=== PATIENT | male | born 1960 | race Caucasian/White ===

== ENCOUNTER 2023-11-09 23:59 | Inpatient (IN) | payer OTHER, MEDICARE ==
[~2023-11-09] VITALS: Ht 177.8 cm; Wt 123.0 kg
[2023-11-10] VITALS (9 sets, daily range): BP systolic 102–143; BP diastolic 71–119; PULSE 60–86; RESP 14–24; TEMP 96.8–98.3
[2023-11-10] MEDS ORDERED: IPRATROPIUM BROMIDE (0.02%) 0.5MG/2.5ML NEB HHN STA (00:22)
[2023-11-10] MEDS ORDERED: ALBUTEROL (0.083%) 2.5MG/3ML NEB HHN STA (00:22)
[2023-11-10 00:45] LABS: BASOPHILS % 0.5 % (0.0-2.0); EOSINOPHILS % 1.2 % (0.0-5.0); HEMATOCRIT. 32.4 % (42.0-52.0); HEMOGLOBIN. 10.5 g/dL (14.0-18.0); LYMPHOCYTES % 10.6 % (20.0-50.0); MEAN CORPUSCULAR HEMOGLOBIN 26.6 pg (28.0-32.0); MEAN CORPUSCULAR HGB CONC 32.5 g/dL (31.0-37.0); MEAN CORPUSCULAR VOLUME 81.8 fL (80.0-94.0); MEAN PLATELET VOLUME 8.4 fl (7.4-10.4); MONOCYTES % 6.5 % (2.0-8.0); NEUTROPHILS % 81.2 % (40.0-76.0); PLATELET 249 x1000/uL (130-400); RED BLOOD CELL COUNT 3.96 mill/uL (4.7-6.1); RED CELL DISTRIBUTION WIDTH 19.7 % (11.6-14.6); WHITE BLOOD COUNT 8.4 x1000/uL (4.5-11.0)
[2023-11-10 01:11] LABS: ALANINE AMINOTRANSFERASE 9 IU/L (10-49); ALBUMIN 4.2 g/dL (3.2-4.8); ASPARTATE AMINOTRANSFERASE 16 IU/L (<34); BILIRUBIN TOTAL 0.9 mg/dL (0.1-1.0); CALCIUM 8.4 mg/dL (8.7-10.4); CARBON DIOXIDE 23 mEq/L (21-32); CHLORIDE 108 mEq/L (98-107); CREATININE 1.9 mg/dL (0.6-1.3); POTASSIUM 3.9 mEq/L (3.5-5.1); PROTEIN TOTAL 6.4 g/dL (6.0-8.3); SODIUM 140 mEq/L (136-145); TROPONIN I HIGH SENSITIVITY 9 ng/L (3.0-53); UREA NITROGEN BLOOD 26 mg/dL (9-23)
[2023-11-10 01:17] LABS: BG BASE EXCESS -3.5 mmol/L (-2.0-2.0); BG CARBOXYHEMOGLOBIN 0.4 % (0.5-1.5); BG DEOXYHEMOGLOBIN 9.1 % (0.0-5.0); BG HCO3 ACT 21.5 mmol/L (22.0-26.0); BG METHEMOGLOBIN 0.4 % (0.0-1.5); BG OXYGEN SATURATION 90.8 % (92.0-98.5); BG OXYHEMOGLOBIN 90.1 % (94.0-97.0); BG PCO2 38.7 mmHg (35.0-45.0); BG PH 7.363 (7.350-7.450); BG PO2 59.4 mmHg (75.0-100.0); BG SAMPLE SITE RIGHT BRACHIAL; BG TOTAL HEMOGLOBIN 11.6 g/dL (12.0-18.0); BG VENT MODE ROOM AIR
[2023-11-10] MEDS: GUAIFENESIN 600MG ER TABLET PO ONE (01:19)
[2023-11-10 01:24] LABS: INR 1.1; PARTIAL THROMBOPLASTIN TIME 29.6 sec (23.4-31.0); PROTHROMBIN TIME 11.9 sec (9.6-11.0)
[2023-11-10 02:00] LABS: ETHANOL BLOOD < 10 mg/dL (<10); GLUCOSE 34 mg/dL (70-105)
[2023-11-10] MEDS: DEXTROSE 50% WATER 50ML SYRINGE IV ONE (02:17)
[2023-11-10] MEDS ORDERED: PIPERACILLIN/TAZO 3.375G/50ML 50 ML IV SCH (07:00)
[2023-11-10] MEDS ORDERED: DEXTROSE 50% WATER 50ML SYRINGE IV PRN (07:00)
[2023-11-10] MEDS: DEXTROSE 50% WATER 50ML SYRINGE IV PRN (07:06)
[2023-11-10] MEDS: FUROSEMIDE 40MG/4ML VIAL IVP NR (07:12)
[2023-11-10] MEDS ORDERED: AMLO5TAB4 MT (07:47)
[2023-11-10] MEDS ORDERED: ATOR40TA70 MT (07:54)
[2023-11-10] MEDS ORDERED: ASPI-1497 PO (07:54)
[2023-11-10] MEDS ORDERED: METF-414 PO (07:54)
[2023-11-10] MEDS ORDERED: METO25TA6 MT (07:54)
[2023-11-10] MEDS ORDERED: LOSA-412 MT (07:54)
[2023-11-10] MEDS ORDERED: GLIP5TAB22 PO (07:54)
[2023-11-10] MEDS: BLOOD SUGAR DIAGNOSTIC STRIP TEST SCH (07:55)
[2023-11-10 08:57] LABS: BASOPHILS % 0.6 % (0.0-2.0); EOSINOPHILS % 0.6 % (0.0-5.0); HEMATOCRIT. 32.2 % (42.0-52.0); HEMOGLOBIN. 10.2 g/dL (14.0-18.0); LYMPHOCYTES % 9.9 % (20.0-50.0); MEAN CORPUSCULAR HEMOGLOBIN 25.9 pg (28.0-32.0); MEAN CORPUSCULAR HGB CONC 31.8 g/dL (31.0-37.0); MEAN CORPUSCULAR VOLUME 81.3 fL (80.0-94.0); MEAN PLATELET VOLUME 8.7 fl (7.4-10.4); MONOCYTES % 7.4 % (2.0-8.0); NEUTROPHILS % 81.5 % (40.0-76.0); PLATELET 222 x1000/uL (130-400); RED BLOOD CELL COUNT 3.96 mill/uL (4.7-6.1); WHITE BLOOD COUNT 7.2 x1000/uL (4.5-11.0)
[2023-11-10 09:13] LABS: CALCIUM 8.5 mg/dL (8.7-10.4); POTASSIUM 4.2 mEq/L (3.5-5.1)
[2023-11-10 09:16] LABS: TROPONIN I HIGH SENSITIVITY 9 ng/L (3.0-53)
[2023-11-10] MEDS: PIPERACILLIN/TAZO 3.375G/50ML IV SCH (09:21)
[2023-11-10] MEDS: PANTOPRAZOLE SODIUM 40 MG/VIAL IV SCH (09:21)
[2023-11-10] MEDS: HEPARIN 5000 UNITS/ML VIAL SUBCUT SCH (09:21)
[2023-11-10] MEDS: ASPIRIN 81MG TABLET PO SCH (09:22)
[2023-11-10] MEDS: METOPROLOL TARTRATE 25MG TABLET PO SCH (09:22)
[2023-11-10] MEDS: ATORVASTATIN CALCIUM 40MG TABLET PO SCH (20:42)
[2023-11-10 22:13] LABS: TROPONIN I HIGH SENSITIVITY 10 ng/L (3.0-53)
[2023-11-11] VITALS (12 sets, daily range): BP systolic 102–130; BP diastolic 65–108; PULSE 63–76; RESP 12–28; TEMP 96.7–98.7
[2023-11-11 06:39] LABS: BASOPHILS % 0.7 % (0.0-2.0); EOSINOPHILS % 1.6 % (0.0-5.0); HEMATOCRIT. 29.6 % (42.0-52.0); HEMOGLOBIN. 9.7 g/dL (14.0-18.0); LYMPHOCYTES % 12.6 % (20.0-50.0); MEAN CORPUSCULAR HEMOGLOBIN 26.2 pg (28.0-32.0); MEAN CORPUSCULAR HGB CONC 32.6 g/dL (31.0-37.0); MEAN CORPUSCULAR VOLUME 80.4 fL (80.0-94.0); MEAN PLATELET VOLUME 8.9 fl (7.4-10.4); MONOCYTES % 7.9 % (2.0-8.0); NEUTROPHILS % 77.2 % (40.0-76.0); PLATELET 192 x1000/uL (130-400); RED BLOOD CELL COUNT 3.68 mill/uL (4.7-6.1); RED CELL DISTRIBUTION WIDTH 18.9 % (11.6-14.6); WHITE BLOOD COUNT 6.8 x1000/uL (4.5-11.0)
[2023-11-11 06:59] LABS: CALCIUM 8.7 mg/dL (8.7-10.4); CREATININE 2.1 mg/dL (0.6-1.3); POTASSIUM 4.6 mEq/L (3.5-5.1)
[2023-11-12] VITALS (12 sets, daily range): BP systolic 116–143; BP diastolic 59–117; PULSE 53–79; RESP 12–29; TEMP 97.1–98.1
[2023-11-12 11:44] LABS: BASOPHILS % 0.9 % (0.0-2.0); EOSINOPHILS % 1.8 % (0.0-5.0); HEMATOCRIT. 30.3 % (42.0-52.0); HEMOGLOBIN. 9.7 g/dL (14.0-18.0); LYMPHOCYTES % 11.3 % (20.0-50.0); MEAN CORPUSCULAR HEMOGLOBIN 25.7 pg (28.0-32.0); MEAN CORPUSCULAR VOLUME 80.2 fL (80.0-94.0); MEAN PLATELET VOLUME 8.8 fl (7.4-10.4); MONOCYTES % 7.8 % (2.0-8.0); NEUTROPHILS % 78.2 % (40.0-76.0); PLATELET 193 x1000/uL (130-400); RED BLOOD CELL COUNT 3.78 mill/uL (4.7-6.1); RED CELL DISTRIBUTION WIDTH 19.8 % (11.6-14.6); WHITE BLOOD COUNT 5.8 x1000/uL (4.5-11.0)
[2023-11-12 12:08] LABS: CALCIUM 8.5 mg/dL (8.7-10.4); CREATININE 1.9 mg/dL (0.6-1.3); POTASSIUM 4.3 mEq/L (3.5-5.1)
[2023-11-12 12:10] LABS: BODY FLUID MONOCYTES 7 %
[2023-11-12 12:20] LABS: BODY FLUID RBC 1918 /cu mm (0-2000); BODY FLUID WBC 270 /cu mm (0-200)
[2023-11-13] VITALS (12 sets, daily range): BP systolic 123–148; BP diastolic 68–108; PULSE 61–80; RESP 17–26; TEMP 97.9–98.6
[2023-11-13 05:45] LABS: CALCIUM 8.8 mg/dL (8.7-10.4); CREATININE 1.7 mg/dL (0.6-1.3); POTASSIUM 4.2 mEq/L (3.5-5.1)
[2023-11-13 05:46] LABS: BASOPHILS % 0.4 % (0.0-2.0); EOSINOPHILS % 2.9 % (0.0-5.0); HEMATOCRIT. 30.1 % (42.0-52.0); HEMOGLOBIN. 9.8 g/dL (14.0-18.0); LYMPHOCYTES % 15.3 % (20.0-50.0); MEAN CORPUSCULAR HEMOGLOBIN 26.6 pg (28.0-32.0); MEAN CORPUSCULAR HGB CONC 32.5 g/dL (31.0-37.0); MEAN PLATELET VOLUME 8.9 fl (7.4-10.4); MONOCYTES % 7.6 % (2.0-8.0); NEUTROPHILS % 73.8 % (40.0-76.0); PLATELET 195 x1000/uL (130-400); RED BLOOD CELL COUNT 3.67 mill/uL (4.7-6.1); RED CELL DISTRIBUTION WIDTH 19.9 % (11.6-14.6); WHITE BLOOD COUNT 6.4 x1000/uL (4.5-11.0)
[2023-11-14] VITALS (13 sets, daily range): BP systolic 109–183; BP diastolic 55–122; PULSE 61–102; RESP 12–26; TEMP 97.3–98.5
[2023-11-14 09:13] LABS: EOSINOPHILS % 2.5 % (0.0-5.0); HEMATOCRIT. 30.7 % (42.0-52.0); HEMOGLOBIN. 9.9 g/dL (14.0-18.0); LYMPHOCYTES % 11.7 % (20.0-50.0); MEAN CORPUSCULAR HEMOGLOBIN 25.8 pg (28.0-32.0); MEAN CORPUSCULAR HGB CONC 32.3 g/dL (31.0-37.0); MEAN CORPUSCULAR VOLUME 80.1 fL (80.0-94.0); MEAN PLATELET VOLUME 8.6 fl (7.4-10.4); MONOCYTES % 7.1 % (2.0-8.0); NEUTROPHILS % 77.7 % (40.0-76.0); PLATELET 200 x1000/uL (130-400); RED BLOOD CELL COUNT 3.84 mill/uL (4.7-6.1); RED CELL DISTRIBUTION WIDTH 19.3 % (11.6-14.6); WHITE BLOOD COUNT 5.9 x1000/uL (4.5-11.0)
[2023-11-14 09:55] LABS: CALCIUM 8.7 mg/dL (8.7-10.4); CREATININE 1.5 mg/dL (0.6-1.3)
[2023-11-15] VITALS (11 sets, daily range): BP systolic 117–161; BP diastolic 55–94; PULSE 65–84; RESP 13–22; TEMP 97–98.4
[2023-11-15] MEDS: FUROSEMIDE 20MG/2ML VIAL IVP SCH (10:02)
[2023-11-16] VITALS (14 sets, daily range): BP systolic 121–162; BP diastolic 52–92; PULSE 0–77; RESP 13–32; TEMP 96.8–97.7
[2023-11-16] MEDS ORDERED: FUROSEMIDE 40MG/4ML VIAL IVP ONE (13:00)
[2023-11-16] MEDS: FUROSEMIDE 20MG/2ML VIAL IVP NR (13:08)
[2023-11-16 14:13] LABS: BG BASE EXCESS 1.7 mmol/L (-2.0-2.0); BG CARBOXYHEMOGLOBIN 0.2 % (0.5-1.5); BG DEOXYHEMOGLOBIN 0.7 % (0.0-5.0); BG FRACTION INSPIRED OXYGEN 50; BG HCO3 ACT 26.8 mmol/L (22.0-26.0); BG METHEMOGLOBIN 0.2 % (0.0-1.5); BG OXYGEN SATURATION 99.3 % (92.0-98.5); BG OXYHEMOGLOBIN 98.9 % (94.0-97.0); BG PCO2 44.1 mmHg (35.0-45.0); BG PH 7.401 (7.350-7.450); BG PO2 210.3 mmHg (75.0-100.0); BG SAMPLE SITE RIGHT RADIAL; BG TOTAL HEMOGLOBIN 10.9 g/dL (12.0-18.0); BG VENT MODE MASK - BIPAP
[2023-11-16] MEDS: CARVEDILOL 6.25 MG TABLET PO SCH (15:00)
[2023-11-16 18:48] LABS: BASOPHILS % 0.9 % (0.0-2.0); EOSINOPHILS % 2.9 % (0.0-5.0); HEMATOCRIT. 30.5 % (42.0-52.0); LYMPHOCYTES % 13.4 % (20.0-50.0); MEAN CORPUSCULAR HEMOGLOBIN 26.6 pg (28.0-32.0); MEAN CORPUSCULAR HGB CONC 32.8 g/dL (31.0-37.0); MEAN CORPUSCULAR VOLUME 81.3 fL (80.0-94.0); MEAN PLATELET VOLUME 8.9 fl (7.4-10.4); MONOCYTES % 7.6 % (2.0-8.0); NEUTROPHILS % 75.2 % (40.0-76.0); PLATELET 209 x1000/uL (130-400); RED BLOOD CELL COUNT 3.75 mill/uL (4.7-6.1); RED CELL DISTRIBUTION WIDTH 19.5 % (11.6-14.6); WHITE BLOOD COUNT 6.1 x1000/uL (4.5-11.0)
[2023-11-16 19:10] LABS: ALANINE AMINOTRANSFERASE 11 IU/L (10-49); ALBUMIN 3.7 g/dL (3.2-4.8); ASPARTATE AMINOTRANSFERASE 15 IU/L (<34); BILIRUBIN TOTAL 0.9 mg/dL (0.1-1.0); CALCIUM 8.5 mg/dL (8.7-10.4); CARBON DIOXIDE 28 mEq/L (21-32); CHLORIDE 103 mEq/L (98-107); CREATININE 1.5 mg/dL (0.6-1.3); GLUCOSE 186 mg/dL (70-105); POTASSIUM 3.9 mEq/L (3.5-5.1); PROTEIN TOTAL 6.1 g/dL (6.0-8.3); SODIUM 137 mEq/L (136-145); UREA NITROGEN BLOOD 10 mg/dL (9-23)
[2023-11-17] VITALS (12 sets, daily range): BP systolic 95–142; BP diastolic 62–89; PULSE 66–76; RESP 12–24; TEMP 97.1–98.2
[2023-11-17 05:51] LABS: CALCIUM 8.7 mg/dL (8.7-10.4); CREATININE 1.5 mg/dL (0.6-1.3); POTASSIUM 3.7 mEq/L (3.5-5.1)
[2023-11-17 06:16] LABS: BASOPHILS % 0.8 % (0.0-2.0); DIFFERENTIAL COMMENT 0; HEMOGLOBIN. 9.6 g/dL (14.0-18.0); LYMPHOCYTES % 12.7 % (20.0-50.0); MEAN CORPUSCULAR HEMOGLOBIN 25.5 pg (28.0-32.0); MEAN CORPUSCULAR HGB CONC 32.1 g/dL (31.0-37.0); MEAN CORPUSCULAR VOLUME 79.3 fL (80.0-94.0); MEAN PLATELET VOLUME 8.7 fl (7.4-10.4); MONOCYTES % 7.3 % (2.0-8.0); NEUTROPHILS % 76.2 % (40.0-76.0); PLATELET 191 x1000/uL (130-400); RED BLOOD CELL COUNT 3.78 mill/uL (4.7-6.1); RED CELL DISTRIBUTION WIDTH 19.1 % (11.6-14.6); WHITE BLOOD COUNT 5.9 x1000/uL (4.5-11.0)
[2023-11-18] VITALS (11 sets, daily range): BP systolic 114–147; BP diastolic 60–96; PULSE 60–86; RESP 12–21; TEMP 97–97.9
[2023-11-18 07:02] LABS: DIFFERENTIAL COMMENT 0; EOSINOPHILS % 2.5 % (0.0-5.0); HEMATOCRIT. 29.5 % (42.0-52.0); HEMOGLOBIN. 9.7 g/dL (14.0-18.0); LYMPHOCYTES % 17.8 % (20.0-50.0); MEAN CORPUSCULAR HGB CONC 32.9 g/dL (31.0-37.0); MEAN PLATELET VOLUME 8.6 fl (7.4-10.4); MONOCYTES % 7.2 % (2.0-8.0); NEUTROPHILS % 71.5 % (40.0-76.0); PLATELET 190 x1000/uL (130-400); RED BLOOD CELL COUNT 3.74 mill/uL (4.7-6.1); RED CELL DISTRIBUTION WIDTH 19.5 % (11.6-14.6); WHITE BLOOD COUNT 5.8 x1000/uL (4.5-11.0)
[2023-11-18 07:16] LABS: CALCIUM 8.7 mg/dL (8.7-10.4); CREATININE 1.4 mg/dL (0.6-1.3); POTASSIUM 3.7 mEq/L (3.5-5.1)
[2023-11-18] MEDS: FUROSEMIDE 40MG/4ML VIAL IVP SCH (16:57)
[2023-11-18] MEDS ORDERED: DEXTROSE 50% WATER 50ML SYRINGE IV PRN (18:00)
[2023-11-18] MEDS: INSULIN LISPRO 100 UNITS/ML SUBCUT SCH (18:08)
[2023-11-19] VITALS (7 sets, daily range): BP systolic 103–147; BP diastolic 63–75; PULSE 64–85; RESP 19–21; TEMP 97.5–98.5
[2023-11-19] MEDS: LEVOFLOXACIN 500MG TABLET PO SCH (18:46)
[2023-11-19] MEDS: ZOLPIDEM TARTRATE 5MG TABLET PO PRN (23:07)
[2023-11-19] MEDS: LORAZEPAM 2MG/ML INJ IV NR (23:26)
[2023-11-20] VITALS (8 sets, daily range): BP systolic 105–130; BP diastolic 40–80; PULSE 66–88; RESP 18–21; TEMP 97–98.9
[2023-11-20 07:20] LABS: BASOPHILS % 0.6 % (0.0-2.0); EOSINOPHILS % 2.4 % (0.0-5.0); HEMATOCRIT. 29.8 % (42.0-52.0); HEMOGLOBIN. 9.9 g/dL (14.0-18.0); LYMPHOCYTES % 14.6 % (20.0-50.0); MEAN CORPUSCULAR HEMOGLOBIN 26.6 pg (28.0-32.0); MEAN CORPUSCULAR HGB CONC 33.3 g/dL (31.0-37.0); MEAN PLATELET VOLUME 8.4 fl (7.4-10.4); MONOCYTES % 7.8 % (2.0-8.0); NEUTROPHILS % 74.6 % (40.0-76.0); PLATELET 194 x1000/uL (130-400); RED BLOOD CELL COUNT 3.73 mill/uL (4.7-6.1); RED CELL DISTRIBUTION WIDTH 18.8 % (11.6-14.6); WHITE BLOOD COUNT 6.6 x1000/uL (4.5-11.0)
[2023-11-20 07:35] LABS: CALCIUM 8.6 mg/dL (8.7-10.4); CREATININE 1.5 mg/dL (0.6-1.3); POTASSIUM 3.8 mEq/L (3.5-5.1)
[2023-11-20] MEDS: SODIUM BICARBONATE 4% (2.4MEQ) 5ML VIAL IV ONE (09:25)
[2023-11-20] MEDS: LEVOFLOXACIN 250MG TABLET PO SCH (18:00)
[2023-11-20] MEDS: FUROSEMIDE 40MG/4ML VIAL IVP SCH (18:00)
[2023-11-21 00:20] VITALS: BP 100/53; PULSE 66; RESP 16; TEMP 97.5
[2023-11-21 04:00] VITALS: BP 117/50; PULSE 69; RESP 19; TEMP 97.3
[2023-11-21 08:02] VITALS: BP 125/74; PULSE 70; RESP 20; TEMP 98.4
[2023-11-21] MEDS: SPIRONOLACTONE 12.5MG TABLET PO SCH (08:45)
[2023-11-21 11:55] VITALS: BP 103/50; PULSE 70; RESP 22; TEMP 98
[2023-11-21 16:08] VITALS: BP 132/84; PULSE 73; RESP 19; TEMP 98.2
[2023-11-21 20:47] VITALS: BP 109/64; PULSE 67; RESP 20; TEMP 97.5
[2023-11-22 00:30] VITALS: BP 118/55; PULSE 64; RESP 19; TEMP 97.1
[2023-11-22 04:00] VITALS: BP 124/56; PULSE 64; RESP 20; TEMP 97.8
[2023-11-22 07:40] LABS: CALCIUM 8.9 mg/dL (8.7-10.4); POTASSIUM 3.4 mEq/L (3.5-5.1)
[2023-11-22 08:10] VITALS: BP 110/90; PULSE 68; RESP 20; TEMP 98.1
[2023-11-22] MEDS: POTASSIUM CHLORIDE 20MEQ TABLET SR PO NR (11:40)
[2023-11-22 11:57] VITALS: BP 110/69; PULSE 67; RESP 19; TEMP 98
[2023-11-22 16:00] VITALS: BP 102/57; PULSE 72; RESP 20; TEMP 97.5
[2023-11-22 16:31] VITALS: BP 102/57; PULSE 72; TEMP 97.5; O2SAT 99
[2023-11-22] MEDS: ASPIRIN 81MG TABLET PO SCH (17:42)
[2023-11-23] MEDS ORDERED: FAMOTIDINE 20MG TABLET PO SCH (09:00)
== END 2023-11-22 19:10 | DRG 291 ==
LOC: ER 23:59 → EDBEDREQSVC 11-10 04:21 → EDBEDREQTM 11-10 04:21 → EDBEDREQ 11-10 04:21 → 5EST 11-10 05:47 → 7WST 11-18 14:10 → 6WST 11-22 12:09
PROVIDERS: ADMIT Internal Medicine; ATTEND Internal Medicine
PROC: 0W9B3ZZ Drainage of Left Pleural Cavity, Percutaneous Approach (ICD-10-PCS; principal; 2023-11-12)
PROC: 5A09357 Assistance with Respiratory Ventilation, Less than 24 Consecutive Hours, Continuous Positive Airway Pressure (ICD-10-PCS; 2023-11-16)
PROC: 5A09357 Assistance with Respiratory Ventilation, Less than 24 Consecutive Hours, Continuous Positive Airway Pressure (ICD-10-PCS; 2023-11-17)
DX: I13.0 Hypertensive heart and chronic kidney disease with heart failure and stage 1 through stage 4 chronic kidney disease, or unspecified chronic kidney disease (principal); I50.33 Acute on chronic diastolic (congestive) heart failure; J96.00 Acute respiratory failure, unspecified whether with hypoxia or hypercapnia; N17.9 Acute kidney failure, unspecified; R18.8 Other ascites; J91.8 Pleural effusion in other conditions classified elsewhere; E11.22 Type 2 diabetes mellitus with diabetic chronic kidney disease; Z20.822 Contact with and (suspected) exposure to COVID-19; N18.9 Chronic kidney disease, unspecified; E11.21 Type 2 diabetes mellitus with diabetic nephropathy; E66.9 Obesity, unspecified; D64.9 Anemia, unspecified; E78.00 Pure hypercholesterolemia, unspecified; Z68.38 Body mass index [BMI] 38.0-38.9, adult; Z86.73 Personal history of transient ischemic attack (TIA), and cerebral infarction without residual deficits
CPT/HCPCS: 32555; 36415; 36600; 71045; 71250; 74176; 76705; 80048; 80053; 80320; 82150; 82375; 82805; 82962; 83036; 83605; 83615; 83880; 84145; 84484; 85025; 85379; 87426; 87804; 88108; 88312; 92610; 93005; 93306; 93970; 94660; 97110; 97116; 97162; 97530; 99285; A6261; C9113; J1644; J1815; J1940; J2060; J2543; J3490; A4315; G0480

== ENCOUNTER 2024-03-23 10:40 | Emergency (ER) | payer MEDICARE, OTHER ==
[~2024-03-23] VITALS: Ht 167.6 cm; Wt 97.0 kg
[~2024-03-23 10:40] MED LIST: ASPI-1497 PO; ATOR40TA70 MT; CARV6.2548 PO; FURO-151 PO; FURO40TA5 PO; LOSA-412 MT; OMEP40CA20 PO
[2024-03-23 10:45] VITALS: O2SAT 96
[2024-03-23 11:39] LABS: CLARITY URINE CLOUDY (CLEAR); COLOR URINE YELLOW (YELLOW); GLUCOSE URINE NEGATIVE (NEGATIVE); KETONES URINE TRACE (NEGATIVE); LEUKOCYTE ESTERASE URINE 3+ (NEGATIVE); NITRITE URINE NEGATIVE (NEGATIVE); OCCULT BLOOD URINE 3+ (NEGATIVE); PROTEIN URINE 1+ (NEGATIVE); UROBILINOGEN URINE 0.2 E.U./dL (0.2-1.0)
[2024-03-23 11:52] LABS: RBC URINE 50-100 /hpf (0-2); SQUAMOUS EPITHELIAL CELL URINE 1+ /lpf (RARE/1+); WBC URINE TNTC /hpf (0-2)
[2024-03-23 11:53] LABS: BACTERIA URINE 1+; YEAST URINE NONE SEEN
[2024-03-23] MEDS ORDERED: CEFP200T13 MT (12:12)
[2024-03-23] MEDS: ACETAMINOPHEN 500MG TABLET PO NR (12:25)
[2024-03-23] MEDS: IBUPROFEN 600MG TABLET PO NR (12:25)
[2024-03-23 12:31] VITALS: BP 130/72; PULSE 66; RESP 18; TEMP 98.5
== END 2024-03-23 12:40 | disposition home or self-care (01) ==
LOC: ER 10:52
DX: N39.0 Urinary tract infection, site not specified (principal); E11.9 Type 2 diabetes mellitus without complications; E78.00 Pure hypercholesterolemia, unspecified; I11.0 Hypertensive heart disease with heart failure; I50.9 Heart failure, unspecified; Z86.73 Personal history of transient ischemic attack (TIA), and cerebral infarction without residual deficits; Z98.890 Other specified postprocedural states; Z79.899 Other long term (current) drug therapy
CPT/HCPCS: 81003; 87077; 87186; 99283